=== PATIENT | male | born 1940 | race Caucasian/White ===

== ENCOUNTER 2016-12-15 22:36 | Emergency (ER) | payer MEDICARE, OTHER ==
[~2016-12-15] VITALS: Ht 185.4 cm; Wt 96.2 kg
[2016-12-15] MEDS ORDERED: IV NORMAL SALINE 1000ML BAG 1,000 ML IV ONE (23:00)
[2016-12-15 23:22] LABS: BASO # 0.2 x10^3/uL (0.0-0.2); BASO % 1 % (0-3); EOS % 1 % (0-3); HEMATOCRIT 48.4 % (39.0-53.0); HEMOGLOBIN 16.1 g/dL (13.0-17.5); LYMPH # 5.9 x10^3/uL (1.0-4.8); LYMPH % 47 % (24-48); MEAN CORPUSCULAR HEMOGLOBIN 32 pg (25-35); MEAN CORPUSCULAR HGB CONC 33 g/dL (31-37); MEAN CORPUSCULAR VOLUME 95 fL (79-100); MONO % 21 % (0-9); NEUT % 29 % (31-73); PLATELET COUNT 151 x10^3/uL (140-400); RED BLOOD COUNT 5.09 x10^6/uL (4.30-5.70); RED CELL DISTRIBUTION WIDTH 12.1 % (11.5-14.5); WHITE BLOOD COUNT 12.6 x10^3/uL (4.0-11.0)
--- NOTE | 2016-12-15 23:25 | PHYS DOC ---
Past Medical History Past Medical History: A-Fib, Diabetes-Type I, Other Additional Past Medical Histor: OA, CELIAC DX, CLL Past Surgical History: Pacemaker Alcohol Use: Rarely Drug Use: None Adult General Chief Complaint Chief Complaint: HYPERGLYCEMIA HPI HPI This 76-year-old male who states he had a blood glucose registered as high earlier today which indicates he was over 500. He took 14 units of Humalog upon arrival his blood glucose is now 232. He states he's had trouble controlling his blood glucose levels because he does not currently have a pump that he can use. He does not have the equipment. He states he is in the process of getting his device equipment. He placed a call to his primary care doctor valencia and was instructed to come into the ER to be placed on a long-acting insulin and be reevaluated on Saturday for his difficult to control blood glucose. Review of Systems Review of Systems Constitutional: Denies fever or chills [] Eyes: Denies change in visual acuity, redness, or eye pain [] HENT: Denies nasal congestion or sore throat [] Respiratory: Denies cough or shortness of breath [] Cardiovascular: No additional information not addressed in HPI [] GI: Denies abdominal pain, nausea, vomiting, bloody stools or diarrhea [] : Denies dysuria or hematuria [] Musculoskeletal: Denies back pain or joint pain [] Integument: Denies rash or skin lesions [] Neurologic: Denies headache, focal weakness or sensory changes [] Endocrine: Denies polyuria or polydipsia [] Current Medications Current Medications Current Medications Medications (Trade) Dose Ordered Sig/[facility] Start Time Stop Time Status Last Admin Dose Admin Sodium Chloride (Iv Sodium Chloride 0.9% 1000ml Bag) 1,000 ml @ 1,000 mls/hr 1X ONCE 12/15/16 23:00 12/15/16 23:22 DC Allergies Allergies Allergies Coded Allergies Type Severity Reaction Last Updated Verified niacin Allergy Intermediate Itching 12/15/16 Yes Physical Exam Physical Exam Constitutional: Well developed, well nourished, no acute distress, non-toxic appearance. [] HENT: Normocephalic, atraumatic, bilateral external ears normal, oropharynx moist, no oral exudates, nose normal. [] Eyes: PERRLA, EOMI, conjunctiva normal, no discharge. [] Neck: Normal range of motion, no tenderness, supple, no stridor. [] Cardiovascular:Heart rate regular rhythm, no murmur [] Lungs & Thorax: Bilateral breath sounds clear to auscultation [] Abdomen: Bowel sounds normal, soft, no tenderness, no masses, no pulsatile masses. [] Skin: Warm, dry, no erythema, no rash. [] Back: No tenderness, no CVA tenderness. [] Extremities: No tenderness, no cyanosis, no clubbing, ROM intact, no edema. [] Neurologic: Alert and oriented X 3, normal motor function, normal sensory function, no focal deficits noted. [] Psychologic: Affect normal, judgement normal, mood normal. [] Current Patient Data Vital Signs Vital Signs Date Time Temp Pulse Resp B/P Pulse Ox O2 Delivery O2 Flow Rate FiO2 12/16/16 01:15 60 16 159/72 94 Room Air 12/15/16 22:38 97.9 97.9 Lab Values Laboratory Tests Test 12/15/16 23:03 12/15/16 23:10 12/15/16 23:20 12/15/16 23:30 Glucose (Fingerstick) 237mg/dL (70-99) H White Blood Count 12.6x10^3/uL (4.0-11.0) H Red Blood Count 5.09x10^6/uL (4.30-5.70) Hemoglobin 16.1g/dL (13.0-17.5) Hematocrit 48.4% (39.0-53.0) Mean Corpuscular Volume 95fL (79-100) Mean Corpuscular Hemoglobin 32pg (25-35) Mean Corpuscular Hemoglobin Concent 33g/dL (31-37) Red Cell Distribution Width 12.1% (11.5-14.5) Platelet Count 151x10^3/uL (140-400) Neutrophils (%) (Auto) 29% (31-73) L Lymphocytes (%) (Auto) 47% (24-48) Monocytes (%) (Auto) 21% (0-9) H Eosinophils (%) (Auto) 1% (0-3) Basophils (%) (Auto) 1% (0-3) Neutrophils # (Auto) 3.7x10^3uL (1.8-7.7) Lymphocytes # (Auto) 5.9x10^3/uL (1.0-4.8) H Monocytes # (Auto) 2.7x10^3/uL (0.0-1.1) H Eosinophils # (Auto) 0.2x10^3/uL (0.0-0.7) Basophils # (Auto) 0.2x10^3/uL (0.0-0.2) Segmented Neutrophils % 36% (35-66) Lymphocytes % 42% (24-48) Monocytes % 20% (0-10) H Eosinophils % 2% (0-5) Platelet Estimate Adequate (ADEQUATE) Sodium Level 138mmol/L (136-145) Potassium Level 5.1mmol/L (3.5-5.1) Chloride Level 102mmol/L (98-107) Carbon Dioxide Level 29mmol/L (21-32) Anion Gap 7 (6-14) Blood Urea Nitrogen 32mg/dL (8-26) H Creatinine 1.1mg/dL (0.7-1.3) Estimated GFR (Cockcroft-Gault) 65.1 BUN/Creatinine Ratio 29 (6-20) H Glucose Level 254mg/dL (70-99) H Calcium Level 10.1mg/dL (8.5-10.1) Total Bilirubin 1.0mg/dL (0.2-1.0) Aspartate Amino Transferase (AST) 36U/L (15-37) Alanine Aminotransferase (ALT) 38U/L (16-63) Alkaline Phosphatase 79U/L (46-116) Total Protein 6.2g/dL (6.4-8.2) L Albumin 3.5g/dL (3.4-5.0) Albumin/Globulin Ratio 1.3 (1.0-1.7) Urine Collection Type Void Urine Color Yellow Urine Clarity Clear Urine pH 5.5 Urine Specific [place] 1.025 Urine Protein Negativemg/dL (NEG-TRACE) Urine Glucose (UA) >=1000mg/dL (NEG) Urine Ketones (Stick) Negativemg/dL (NEG) Urine Blood Negative (NEG) Urine Nitrite Negative (NEG) Urine Bilirubin Negative (NEG) Urine Urobilinogen Dipstick 0.2mg/dL (0.2 mg/dL) Urine Leukocyte Esterase Negative (NEG) Urine RBC 0/HPF (0-2) Urine WBC Rare/HPF (0-4) Urine Squamous Epithelial Cells Occ/LPF Urine Bacteria 0/HPF (0-FEW) Lactic Acid Level 1.4mmol/L (0.4-2.0) Test 12/16/16 00:00 12/16/16 00:19 12/16/16 01:27 Glucose (Fingerstick) 206mg/dL (70-99) H 227mg/dL (70-99) H 204mg/dL (70-99) H Laboratory Tests 12/15/16 23:10 Laboratory Tests 12/15/16 23:10 EKG EKG EKG as interpreted by me shows a paced rhythm with a rate of 64 bpm with no acute ST findings. This EKG does not meet STEMI criteria. Radiology/Procedures Radiology/Procedures One view of the chest does not demonstrate any acute cardiopulmonary process as interpreted by me. Course & Med Decision Making Course & Med Decision Making Pertinent Labs and Imaging studies reviewed. (See chart for details) This 76-year-old male who presents with an episode of hypoglycemia as a blood glucose upon arrival to . The plan will be to observe the department for several hours in the department and recheck his blood glucose multiple times. If it remains in the relatively normal range he will be placed on a low-dose long-acting insulin regimen and will follow closely with his primary care doctor on Saturday. Laboratory workup will be obtained. Laboratory workup was unremarkable. His blood glucose was checked multiple times and remained stable in the low 200 range. I provided a prescription for Levemir 10 units to be taken in the morning. A total of 20 units were prescribed. Patient does have a follow-up appointment on Saturday with his primary care doctor to have his blood glucose rechecked. He was given strict instruction return if he is unable to adequately control it at home or if he develops any nausea or vomiting. Dragon Disclaimer Dragon Disclaimer This electronic medical record was generated, in whole or in part, using a voice recognition dictation system. Departure Departure Impression: Primary Impression: Hyperglycemia Disposition: HOME, SELF-CARE Condition: STABLE Referrals: MIRIAM HANEY (PCP) Patient Instructions: Hyperglycemia, [id number] Additional Instructions: Please follow up with your primary doctor on Saturday for your elevated blood glucose. Take 10 units of Levemir in the morning and continue to use your sliding scale as instructed. Continue to check your blood glucose regularly. Return to the ER if your blood glucose should get too low or you develop any symptoms of lightheadedness, change in behavior, nausea, or vomiting. Scripts Insulin Detemir (Levemir)100 Unit/1 Ml Vial10 Unit SQ 1X #20 VIAL Levemir 10 units in the AM for the next 2 days Prov:KAYE KENNEY DO 12/16/16 KAYE KENNEY DO Dec 15, 2016 23:25
[2016-12-15 23:33] LABS: CALCIUM 10.1 mg/dL (8.5-10.1); CREATININE 1.1 mg/dL (0.7-1.3); GFR 65.1; POTASSIUM 5.1 mmol/L (3.5-5.1)
[2016-12-15 23:40] LABS: ALBUMIN 3.5 g/dL (3.4-5.0); ALBUMIN/GLOBULIN RATIO 1.3 (1.0-1.7); TOTAL PROTEIN 6.2 g/dL (6.4-8.2)
[2016-12-15 23:43] LABS: % EOS 2 % (0-5)
[2016-12-15 23:44] LABS: PLT ESTIMATE ADEQUATE (ADEQUATE)
[2016-12-15 23:45] LABS: BILIRUBIN,URINE NEGATIVE (NEG); GLUCOSE,URINE >=1000 mg/dL (NEG); NITRITE,URINE NEGATIVE (NEG); PH,URINE 5.5; PROTEIN,URINE NEGATIVE (NEG-TRACE); UROBILINOGEN,URINE 0.2 mg/dL (0.2 mg/dL)
[2016-12-15 23:50] LABS: RBC,URINE 0 /HPF (0-2)
[2016-12-15 23:51] LABS: BACTERIA,URINE 0 /HPF (0-FEW); SQUAMOUS EPITHELIAL CELL,UR OCC /LPF; WBC,URINE RARE /HPF (0-4)
[2016-12-16 01:15] VITALS: BP 159/72
[2016-12-16] MEDS ORDERED: INSU100V13 SQ (01:20)
--- NOTE | 2016-12-16 07:11 | EKG ---
[facility] [address] [place] [address] Test Date: 2016-12-15 Test Time: 23:10:39 Pat Name: RODNEY SANCHEZ Department: Room: Gender: M Pedicurist: : 1940 Requested By: KAYE KENENY Order Number: [id number] Reading MD: Sharron Vásquez Measurements Intervals [place] Rate: 64 P: [place]: QRS: -67 QRSD: 166 T: 82 QT: 452 QTc: 471 Interpretive Statements ATRIAL FIBRILLATION ELECTRONIC PACEMAKER. V PACED AT 64 PER MIN ABNORMAL ECG RI6.01 No previous ECG available for comparison Electronically Signed On 12-16-2016 19:25:25 CDT by Sharron Vásquez
--- NOTE | 2016-12-16 07:54 | RAD ---
EXAM: Chest, single view. HISTORY: Weakness. COMPARISON: 12/09/2006. FINDINGS: A frontal view of the chest is obtained. There is no infiltrate, effusion or pneumothorax. There is mild enlargement of the cardiac silhouette. There is left retrocardiac opacity possibly due to a hiatal hernia. There is a left cardiac pacemaker with leads in expected position. IMPRESSION: Left retrocardiac opacity possibly due to a hiatal hernia. The imaging appearance does not favor a consolidated infiltrate or mass.
== END 2016-12-16 01:25 | disposition home or self-care (01) ==
LOC: ER 22:36
DX: E10.9 Type 1 diabetes mellitus without complications (principal); I48.91 Unspecified atrial fibrillation; E10.65 Type 1 diabetes mellitus with hyperglycemia; M19.90 Unspecified osteoarthritis, unspecified site; Z95.0 Presence of cardiac pacemaker; Z88.8 Allergy status to other drugs, medicaments and biological substances; Z79.4 Long term (current) use of insulin
CPT/HCPCS: 36415; 71010; 80053; 81001; 82947; 83605; 85007; 85027; 93005; 99285-25